=== PATIENT | female | born 2000 | race Caucasian/White ===

== ENCOUNTER 2020-10-16 15:12 | Emergency (ER) | payer MEDICAID ==
[~2020-10-16] VITALS: Ht 165.1 cm; Wt 86.8 kg
--- NOTE | 2020-10-16 16:10 | NUR ---
PT CAME IN [place] DIFFUSE ABD PAIN AND "LIQUID STOOL" X 6 DAYS. PT STATES SHE HAS VOMITTING A FEW TIMES OVER THAT SPAN. DENIES RECENT ABX. RESTING IN [facility]. BLANKET PROVIDED.
--- NOTE | 2020-10-16 16:30 | NUR ---
PT CARE DELAYED D/T MULTIPLE PIV ATTEMPTS. PT RECIEVED PIV VIA ULTRASOUND BY KASSANDRA FRIAS
[2020-10-16] MEDS ORDERED: SODIUM CHLORIDE 0.9% 1,000ML IVBOLUS ONE ×2 (17:00→18:00)
[2020-10-16 17:13] LABS: BASOPHILS % (AUTO) 0 % (0-1); EOSINOPHILS % (AUTO) 1 % (1-7); LYMPHOCYTES % (AUTO) 18 % (22-44); MEAN CORPUSCULAR HGB CONC 34.6 g/dL (32.4-35.8); MONOCYTES % (AUTO) 10 % (2-9); NEUTROPHILS % (AUTO) 70 % (42-75); PLATELET COUNT 364 x10^3/uL (130-400); RED BLOOD COUNT 4.74 x10^6/uL (3.82-5.3); RED CELL DISTRIBUTION WIDTH 12.7 % (9.6-15.2)
[2020-10-16 17:15] LABS: MD NO
[2020-10-16 17:19] LABS: ALANINE AMINOTRANSFERASE 67 U/L (12-78); ALBUMIN 3.3 g/dL (3.4-5.0); ANION GAP 8 mmol/L (5-15); CALCIUM 8.7 mg/dL (8.5-10.1); CHLORIDE 109 mmol/L (98-107); CREATININE 0.81 mg/dL (0.55-1.02)
[2020-10-16 17:24] LABS: ALKALINE PHOSPHATASE 57 U/L (45-117); TOTAL PROTEIN 7.3 g/dL (6.4-8.2)
--- NOTE | 2020-10-16 17:43 | NUR ---
PT SITTING ON [employer] ON HER PHONE, WATCHING TV. CALL LIGHT WITHIN REACH. NS INFUSING, NADN/VSS. NO NEEDS AT THIS TIME
[2020-10-16 18:23] VITALS: BP 117/80
--- NOTE | 2020-10-16 18:24 | NUR ---
PT SITTING ON [employer] ON HER PHONE, WATCHING TV. CALL LIGHT WITHIN REACH. NS INFUSING, NADN/VSS. NO NEEDS AT THIS TIME. AWAITING IVF THEN WILL BE DC
--- NOTE | 2020-10-16 18:46 | NUR ---
REPORT TO KASSANDRA CORADO
--- NOTE | 2020-10-16 18:47 | NUR ---
REPORT FROM MICHAEL ASSUMED CARE OF PT
== END 2020-10-16 19:01 | disposition home or self-care (01) ==
LOC: ED 16:00
DX: E86.0 Dehydration (principal); R19.7 Diarrhea, unspecified; R10.30 Lower abdominal pain, unspecified
CPT/HCPCS: 36415; 80053; 83690; 84703; 85025; 99283